=== PATIENT | male | born 1995 | race Caucasian/White ===

== ENCOUNTER 2021-10-24 06:29 | Emergency (ER) | payer OTHER, SELFPAY ==
--- NOTE | ~2021-10-24 | CT_ITS ---
EXAMINATION: CT abdomen pelvis wo con DATE: 10/24/2021 07:58 INDICATION: Right renal stones. Left flank pain. TECHNIQUE: Computed tomography (CT) of the abdomen and pelvis was performed without intravenous contr ast. Automated exposure control and iterative reconstruction technique were employed. The dose-length product was 1342.91 mGy-cm. COMPARISON: None FINDINGS: Minimal discoid atelectasis at the right middle lobe. Size is normal. No pericardial or pleural effus ion. Diffuse hepatic steatosis with focal sparing along the gallbladder fossa. Couple small hepatic a nd splenic calcification is consistent with old granulomatous disease. Gallbladder, pancreas and bila teral adrenal glands are normal. 1 mm nonobstructing stone at an upper pole calyx of the right kidney . 3 mm stone in the proximal left ureter at the level of L3 with mild left hydronephrosis. No other u rolithiasis. Decompressed bladder is normal. Mild scattered diverticulosis without adjacent inflammat ory change to suggest diverticulitis. Small bowel and appendix are normal. No free intraperitoneal ga s or fluid. No pathologically enlarged abdominal or pelvic lymphadenopathy. Mild thoracolumbar spondy losis with chronic mild anterior wedging at T10 and T11. IMPRESSION: 1. Bilateral nephrolithiasis with at least partially obstructing 3 mm proximal left ureteral stone wi th mild left hydronephrosis. Reviewed, dictated and finalized at location A. IMPRESSION: 1. Bilateral nephrolithiasis with at least partially obstructing 3 mm proximal left ureteral stone with mild left hydronephrosis.
[2021-10-24 06:34] VITALS: BP 157/104; PULSE 82; RESP 20; TEMP 36.3; O2SAT 96
--- NOTE | 2021-10-24 06:45 | ED.GENADULT ---
HPI - General Adult General Chief complaint: Urogenital-Male Stated complaint: Flank Pain Time Seen by Provider: 10/24/21 06:33 History of Present Illness HPI narrative: 26-year-old male presents emergency room secondary to pain in the left flank region. States it began yesterday and he went to an urgent care. They suspect that he had a kidney stone and gave him a prescription for Flomax as well as Zofran however that prescriptions at the pharmacy. He is having bouts of pain that is so bad that he doubles over in pain and has had vomiting associated with it. Denies any blood in his urine that he can see. No history of kidney stones before. He has no other medical problems. Related Data Allergies Allergy/AdvReac Type Severity Reaction Status Date / Time No Known Allergies Allergy Verified 10/24/21 06:36 Review of Systems Review of Systems: CONSTITUTIONAL: Denies fever, chills, or sweats. EYES: Denies visual changes, redness, or discharge. ENT: Denies rhinorrhea, congestion, sore throat, or otalgia. CARDIOVASCULAR: Denies chest pain, palpitations, or edema. RESPIRATORY: Denies cough or dyspnea. GASTROINTESTINAL: Pain to the left flank region with associated nausea and vomiting. No diarrhea. GENITOURINARY: Denies dysuria or hematuria. SKIN: Denies rash or itching. MUSCULOSKELETAL: Denies back pain, joint pain, or myalgia. NEUROLOGIC: Denies headache, numbness, or weakness. PSYCHIATRIC: Denies anxiety or depression. PMFSH Past Medical History Medical History (Updated 10/24/21 @ 08:40 by Katharina Nagy MD) No pertinent past medical history Social History Social History (Updated 10/24/21 @ 06:48 by Zoltan Corrales DO) Smoking status: Never smoker Living arrangements: with family Occupation/Education: occupation Exam Narrative: APPEARANCE: Well appearing, no pain or distress, well-nourished. Head Normocephalic and atraumatic. EYES: PERRLA/EOMI, conjunctivae clear. NOSE: Normal with no drainage EARS:TMS clear with [place], with good light reflex. THROAT: Pharynx clear, no exudate. NECK: Supple. No adenopathy, no masses. RESPIRATORY: Airway patent, respirations nonlabored. Clear to auscultation bilaterally, no rales, rhonchi, wheezing. CARDIOVASCULAR: Regular rate and rhythm without murmurs, rubs, or gallops. ABDOMINAL: Soft, nontender, nondistended, no hepatosplenomegaly Musculoskeletal: Moves all extremities. Strength/ROM intact, No edema, No calf tenderness. NEURO: Alert. Cranial nerves II through XII intact. Normal gait. Good coordination. Nonfocal examination. SKIN:: Warm, dry. Normal Color PSYCHIATRIC: Normal affect/mood, normal interaction Course Vital Signs Vital signs: Vital Signs Temperature 36.3 C L 10/24/21 06:34 Pulse Rate 82 10/24/21 06:34 Respiratory Rate 20 10/24/21 06:34 Blood Pressure 157/104 H 10/24/21 06:34 Pulse Oximetry 96 10/24/21 06:34 Oxygen Delivery Room Air 10/24/21 06:34 Temperature 36.3 C L 10/24/21 06:34 Pulse Rate 82 10/24/21 06:34 Respiratory Rate 20 10/24/21 06:34 Blood Pressure 157/104 H 10/24/21 06:34 Pulse Oximetry 96 10/24/21 06:34 Oxygen Delivery Room Air 10/24/21 06:34 Medical Decision Making MDM Narrative Medical decision making narrative: Presentation is consistent with kidney stone. His pain is under control at this time but it seems to be coming in waves. IV will be established given some IV Toradol and Zofran. Routine laboratory work including comprehensive metabolic panel CBC obtained. As well as urinalysis. Patient has a CT of his abdomen without contrast ordered via kidney stone protocol. 0700 patient was endorsed to my partner. Vital Signs Vital Signs: Vital Signs Temperature 36.3 C L 10/24/21 06:34 Pulse Rate 82 10/24/21 06:34 Respiratory Rate 20 10/24/21 06:34 Blood Pressure 157/104 H 10/24/21 06:34 Pulse Oximetry 96 10/24/21 06:34 Oxygen Delivery Room Air 10/24/21 06:34 Temp
[2021-10-24] MEDS: SODIUM CHLORIDE 0.9% IV 1,000 ML 500 ML IV CONT (06:52)
[2021-10-24] MEDS: KETOROLAC 30 MG/ML VIAL (*BKC) IV PUSH (06:53)
[2021-10-24] MEDS: ONDANSETRON INJ 4 MG/2 ML VIAL IV PUSH (06:53)
[2021-10-24 06:56] LABS: Basophils Percent Auto 0.5 % (0.2-1.2); Eosinophils Absolute Auto 0.1 K/mm3 (0-0.3); Eosinophils Percent Auto 1.5 % (0-4.4); Hematocrit 47.2 % (42.0-52.0); Hemoglobin 15.5 g/dL (14.0-18.0); Immature Granulocyte Absolute 0.06 K/mm3 (0.00-0.031); Immature Granulocyte Percent A 0.7 % (0-0.5); Lymphocytes Absolute Auto 2.04 K/mm3 (0.9-3.2); Lymphocytes Percent Auto 23.4 % (18.3-44.2); Mean Corpuscular HGB Conc 32.8 g/dl (32-36); Mean Corpuscular Hemoglobin 29.9 pg (26-34); Mean Corpuscular Volume 90.9 fl (80-100); Mean Platelet Volume 9.7 fl (7.4-10.4); Monocytes Absolute Auto 0.7 K/mm3 (0.1-0.6); Monocytes Percent Auto 8.2 % (2.6-8.5); Neutrophils Absolute Auto 5.7 K/mm3 (1.3-6.7); Neutrophils Percent Auto 65.7 % (45.5-73.1); Platelet Count Result 300 k/mm3 (150-375); Red Blood Count 5.19 M/mm3 (4.6-6.20); Red Cell Distribution Width 12.4 % (11.5-14.5); White Blood Count 8.7 K/mm3 (4.5-10.0)
[2021-10-24 07:29] LABS: Alanine Aminotransferase 55 U/L (6-50); Albumin Level 4.6 g/dL (3.5-5.1); Alkaline Phosphatase 56 U/L (38-126); Anion Gap 11 mmol/L (8-16); Aspartate Amino Transferase 36 U/L (17-59); Bilirubin,Total 0.6 mg/dL (0.2-1.3); Blood Urea Nitrogen 9 mg/dL (9-20); Calcium 9.7 mg/dL (8.4-10.2); Carbon Dioxide 28 mmol/L (22-30); Chloride 102 mmol/L (98-107); Estimated CRCL calculation 128 ml/min; Estimated Glomerular Filt Rate > 60; Glucose 106 mg/dL (65-110); Potassium 3.7 mmol/L (3.4-5.0); Sodium 141 mmol/L (137-145)
[2021-10-24 07:45] LABS: Appearance Urine Cloudy (Clear); Bilirubin Urine 1+ (Negative); Blood Urine 3+ (Negative); Color Urine Amber (Yellow); Glucose Urine UA Negative (Negative); Ketones Urine Trace mg/dL (Negative); Leukocyte Esterase Ur Negative LEU/UL (Negative); Nitrate Urine Negative (Negative); Protein Urine 2+ mg/dL (Negative); Specific Grav Ur >= 1.030 (1.001-1.035); Urobilinogen Urine 0.2 mg/dL (<2.0); pH Urine 5.5 (5.0-9.0)
[2021-10-24 07:59] LABS: Bacteria Urine Trace /hpf; Mucus Urine Moderate /lpf; RBC Urine >75 /hpf (0-2); WBC Urine 0-3 /hpf
[2021-10-24 09:18] LABS: Add Urine Microscopic? YES
== END 2021-10-24 08:50 | disposition home or self-care (01) ==
PROVIDERS: Emergency Medicine; Emergency Provider Emergency Medicine
DX: N13.2 Hydronephrosis with renal and ureteral calculous obstruction (principal)
CPT/HCPCS: 36415; 74176; 80053; 81001; 85025; 96361; 96374; 96375; 99284; J1885; J2405; J7030

== ENCOUNTER → 2021-11-03 09:16 | Outpatient (CLI) | payer OTHER, SELFPAY ==
--- NOTE | ~2021-11-03 | CT_ITS ---
EXAMINATION: CT abdomen pelvis wo con DATE: 11/03/2021 09:29 INDICATION: Left ureteral stone TECHNIQUE: Computed tomography (CT) of the abdomen and pelvis was performed without intravenous contr ast. The dose-length product (DLP) was 946.69 mGy-cm. Automated exposure control and iterative recons truction technique were employed. COMPARISON: 10/24/2021 FINDINGS: Minimal dependent atelectasis is present in the lung bases. The heart size is normal. Punct ate calcifications in otherwise normal appearing liver and spleen likely represent healed granulomato us disease. The pancreas, gallbladder, and adrenal glands are normal. The right kidney is unremarkabl e. There is a 3 mm stone in the left mid ureter which demonstrates slight distal migration since the comparison examination, now seen at the level of the L5 vertebral body. No pathologically enlarged ab dominal or pelvic lymph nodes are identified. The appendix is normal. There is no free intraperitonea l gas or evidence of bowel obstruction. IMPRESSION: 1. 3 mm stone of the left mid ureter with slight distal migration since the comparison examination. Reviewed, dictated and finalized at location B. IMPRESSION: 1. 3 mm stone of the left mid ureter with slight distal migration since the [facility]ison examination.
== END ==
PROVIDERS: PCP Nurse Practitioner Adult Health; Visit Provider Nurse Practitioner Adult Health
DX: N20.1 Calculus of ureter (principal)
CPT/HCPCS: 74176

== ENCOUNTER 2021-11-09 00:40 | Day surgery (SDC) | payer OTHER, SELFPAY ==
[2021-11-07 11:43] VITALS: BMI 36.6
--- NOTE | 2021-11-07 11:52 | PC.NURSE ---
Report to the Outpatient Waiting Room, entrance under the green pavilion located off [facility], at time 0815 on date 11/09/21. OR Time: 1015. - You and your visitor will be asked to self-screen and do not enter if you have any COVID symptoms. - Only one visitor and NO children visitors are allowed at this time. - The patient visitor is requested to leave or wait in car when not with patient due to restrictions. - A mask is required within the hospital. Patients may have clear liquids (water, carbonated beverages, clear teas, apple juice) until 3 hours prior to surgery with a maximum of 20 ounces. - No food from midnight until time of surgery Take the following medications with a SIP of water the morning of surgery: PAIN PILL (IF NEEDED) Medications to discontinue per physician: N/A Date to take last dose: N/A Please no make-up, nail danish, hairspray, perfume, deodorant, or body powder the day of surgery. No jewelry (including any body piercings) or valuables the day of surgery, leave them at home. Please take a shower or bath the night before, or the morning of, surgery with an antibacterial soap. Wear comfortable, loose fitting clothing. - Jewelry must be removed prior to entering the operating room. Rings and piercings that are not removed may be cut off. - The hospital will not accept responsibility for valuables. - Please leave all valuables, including medications, at home the day of surgery. If you are going home after surgery, a licensed class a regional drivers must drive you home. - NO public transportation without another adult. - We recommend that an adult stay with you for 24 hours following discharge. - We also recommend that you do not drive, make important decision, drink alcoholic beverages, or take any drugs that were not prescribed by your health care provider for at least 24 hours after your discharge time. Follow any additional instructions given to you from your surgeon. If you or anyone in your household have experienced Covid symptoms in the past week, please notify your surgeon or the nurse liaison at the phone number below for possible testing. Telephone instructions given to PT - HÉCTOR GONZALEZ and asked if any additional questions and then verbalized understanding. Patient advised to call surgeon office or pre surgery nurse liaison [phone] if any additional questions.
--- NOTE | 2021-11-08 13:30 | P.PNAN_ITS ---
Anes - Initial Pre Proc Eval Procedure: Operation Date: 11/09/21 10:15 Proposed Procedures p Cystoscopy, Left Ureteroscopy, Possible Left Retrograde Pyelogram, Possible Left Stone Extraction, Possible Left Stent Placement, Possible Holmium Laser Procedure - Robin Redd MD Date/Time: 11/08/21 13:30 Surgeon: Robin Redd MD Pre Op Diagnosis: left ureteral stone Patient Data Age: 26 Gender: M Height: 1.78 m Weight: 115.67 kg Allergies Allergy/AdvReac Type Severity Reaction Status Date / Time Sulfa (Sulfonamide AdvReac Other Verified 11/09/21 08:26 Antibiotics) Home Medications Medication Instructions Recorded Confirmed Type acetaminophen 500 mg capsule 500 mg PO Q6H PRN fever or pain 10/24/21 11/09/21 Rx #30 caps oxycodone 5 mg tablet (Roxicodone) 5 mg PO Q8H PRN pain 3 days #10 10/24/21 11/09/21 Rx tabs tamsulosin 0.4 mg capsule (Flomax) 0.4 mg PO DAILY #30 caps 10/24/21 11/09/21 Rx Patient hx anesthesia problems: none Family hx anesthesia problems: none Results Review: All pre-operative results and documents have been reviewed as part of the pre- operative evaluation. [facility], LAT[facility] Past Medical History Medical History (Updated 11/08/21 @ 13:31 by Lauro Carbajal MD) No pertinent past medical history Obesity Ureterolithiasis Social History Social History (Updated 10/24/21 @ 06:48 by Zoltan Corrales DO) Smoking status: Never smoker Alcohol intake: never Substance use: never Substance use type: does not use Living arrangements: with family Spiritual care concerns: No Anes - Eval Final PreProcedure Day of Procedure 11/08/21 13:30 Patient weight: obese Heart: regular rate and rhythm Lungs: clear to auscultation and normal air movement Airway: Mallampati scale class II Neurological: alert and oriented Last oral intake: >/= 8 hours ASA classification: II Emergent: no Anesthetic plan: proceed Anesthesia type and monitoring: general LMA Results Review: All pre-operative results and documents have been reviewed as part of the pre- operative evaluation. Informed Consent: The patient's anesthetic plan and its attendant risks and benefits were discussed with the patient/family/POA. Questions were solicited and answers provided to the satisfaction of the patient/family/POA.
[2021-11-09] VITALS (8 sets, daily range): BP systolic 120–142; BP diastolic 80–93; PULSE 69–92; RESP 16–18; TEMP 36.1–36.7; O2SAT 96–100
--- NOTE | ~2021-11-09 | XR_ITS ---
EXAMINATION: XR fluoroscopy no charge DATE: 11/09/2021 10:03 INDICATION: Left ureteral stone. TECHNIQUE: A single intraoperative fluoroscopic view of the abdomen and pelvis was obtained. COMPARISON: CT abdomen and pelvis 11/03/2021 FINDINGS: Images demonstrate a wire in the left ureter. IMPRESSION: 1. Left ureteral stone not visible. Reviewed, dictated and finalized at location A.
--- NOTE | 2021-11-09 06:45 | WPDHPUPDATE1 ---
History and Physical Update Update Date/Time: 11/09/21 06:45 History and Physical has been reviewed, including an updated exam of the patient. There are NO changes in the patient's condition. Risks, benefits, and alternatives have been discussed and questions answered. Patient agrees to proceed with procedure.
[2021-11-09] MEDS: LACTATED RINGERS 1,000 ML 30 ML IV CONT (08:41)
[2021-11-09] MEDS: KETOROLAC 30 MG/ML VIAL (*BKC) IV PUSH (09:45)
[2021-11-09] MEDS: ceFAZolin 3 GM/D5W 100 ML 100 ML IVPB (09:51)
[2021-11-09] MEDS: LIDOCAINE HCL 2% GEL UROJET 10 ML PKG MUCOUS MEM (09:52)
--- NOTE | 2021-11-09 10:08 | W.PM.PROC2 ---
Procedure Note - Detailed Date of Procedure 11/09/21 Pre-op Diagnosis Left ureteral stone Post-op Diagnosis Same Procedure Performed Cystoscopy, left ureteroscopy with stone extraction Surgeon Robin Redd MD Description of Procedure The patient was brought to the operative suite where he is prepped and draped in a routine sterile fashion while in the dorsal lithotomy position after the uneventful induction of a general LMA anesthetic. A 19F rigid cystoscope was placed in the bladder. There are no urethral strictures. His prostatic urethra measures, approximately, 1.5cm with no median lobe enlargement. The bladder mucosa was endoscopically normal without hyperemia or neoplasm. There was a single, orthotopic ureteral orifice bilaterally. A 0.035 glidewire was advanced into the renal pelvis under fluoroscopy. The distal ureter was dilated with an 8F/10F ureteral dilator. Ureteroscopy was undertaken with a short, tapered, semi-rigid ureteroscope and the stone was extracted with ease using a 1.9F Escape disposable stone basket. Due to the ease of this manipulation I opted not to place a ureteral stent. The patient's bladder was emptied and was taken to the recovery room having tolerated this procedure well. Drains No Packing No Pathology None sent Complications No immediate complications
== END 2021-11-09 11:45 | disposition home or self-care (01) ==
PROVIDERS: Visit Provider Urology
PROC: (CPT 52352; principal; 2021-11-09 10:15)
DX: N20.1 Calculus of ureter (principal); E66.9 Obesity, unspecified; Z68.38 Body mass index [BMI] 38.0-38.9, adult
CPT/HCPCS: 52352; 82365; 88300; 99199; A9270; C1769; J0131; J0690; J1100; J1885; J2405; J2704; J3010; J7120

== ENCOUNTER → 2022-07-23 14:00 | Outpatient (CLI) | payer OTHER, SELFPAY ==
--- NOTE | ~2022-07-23 | XR_ITS ---
XR abdomen/kub 1V 07/23/2022 14:14 INDICATION: Right renal stone TECHNIQUE: KUB COMPARISON: No prior studies for comparison. FINDINGS: Bowel gas pattern is normal. There is no evidence of free air, mass, organomegaly, ascites or obstruction. No abnormal calculi are seen. The bones appear intact. IMPRESSION: 1: No acute abdominal abnormality identified. Reviewed, dictated and finalized at location B.
== END ==
PROVIDERS: PCP Urology; Visit Provider Urology
DX: N20.0 Calculus of kidney (principal)
CPT/HCPCS: 74018